=== PATIENT | male | born 1960 | race Caucasian/White ===

== ENCOUNTER 2022-10-13 07:06 | Outpatient (REF) | payer OTHER, SELFPAY ==
[2022-10-13 11:53] LABS: Hematocrit 42.1 % (42.0-52.0); Mean Corpuscular HGB Conc 33.3 g/dl (31.0-36.0); Mean Corpuscular Hemoglobin 32.3 pg (27.0-33.0); Mean Platelet Volume 10.2 fL (9.4-12.4); Platelet Count 208 X10*3/uL (160-400); Red Blood Count 4.34 X10*6/uL (4.60-5.80); Red Cell Distribution Width 12.3 % (11.0-16.0); White Blood Count 6.9 X10*3/uL (4.8-10.8)
[2022-10-13 12:32] LABS: Alanine Aminotransferase 18 U/L (0-40); Albumin Level 4.2 g/dL (3.5-5.0); Alkaline Phosphatase 90 U/L (39-117); Anion Gap 11 (12-20); Aspartate Amino Transferase 22 U/L (5-37); Bilirubin Total 1.2 mg/dL (0.0-1.0); Blood Urea Nitrogen 22 mg/dL (9-16); Carbon Dioxide 28 mmol/L (22-29); Chloride 107 mmol/L (96-108); Cholesterol 198 mg/dL; Estimated Glomerular Filt Rate > 60; Glucose Fasting 108 mg/dL (60-99); HDL Cholesterol 34 mg/dL; LDL Cholesterol Calculated 138 mg/dl; Sodium 142 mmol/L (135-145); Total Protein 6.8 g/dL (6.5-8.0); Triglycerides 134 mg/dL
[2022-10-13 12:53] LABS: TSH reflex Free T4 1.92 uIU/mL (0.32-4.0); Vitamin D 25-OH Total 23.7 ng/mL (>30)
[2022-10-21 01:13] LABS: PSA, Ultra Sensitive 1.85 ng/mL
== END 2022-10-13 07:07 | disposition home or self-care (01) ==
LOC: HO.WFDLDS 07:06
PROVIDERS: Visit Provider Nurse Practitioner Family
DX: Z12.5 Encounter for screening for malignant neoplasm of prostate (principal); I10 Essential (primary) hypertension; E55.9 Vitamin D deficiency, unspecified
CPT/HCPCS: 36415; 80053; 80061; 82306; 84153; 84443; 85027

== ENCOUNTER 2023-03-20 13:01 | Outpatient (AMB) | payer OTHER, SELFPAY ==
[2023-03-20 13:05] VITALS: BP 124/74; PULSE 68; RESP 12; TEMP 36.4; O2SAT 99; BMI 29.2
--- NOTE | 2023-03-20 13:05 | A.OFFPC_ITS ---
Vital Signs 03/20/23 13:05 Height 6 ft 1 in Weight 221 lb 8 oz BMI 29.2 BP 124/74 Blood Pressure Location Lt brachial Position Sitting Respiration 12 Pulse 68 Pulse Source Pulse Oximeter Temp 97.5 F Temp Source Temporal Artery Scan Pulse Oximetry (%) 99 Oxygen Delivery Method Room Air Intake Visit Reasons: 1 mos HTN - due for colonoscopy Intake Note: Patient would like to know what the ideal salt intake should be for the day. Customer Business Manager Required: No Accompanied by: Self / Same As Patient Allergies shellfish derived Allergy (Mild, Verified 03/20/23 13:26) Unknown Medication List - Last Reconciled 03/20/23 by Gaston Wyatt CNP amlodipine 10 mg PO DAILY 30 days cholecalciferol (vitamin D3) 25 mcg PO DAILY 90 days metoprolol tartrate 50 mg PO DAILY 30 days Tobacco use date assessed: 10/17/22 Fall risk assessment: No Falls in past year Last assessed Fall Risk: 03/20/23 Dental Screening Dental Screen Date: 03/20/23 Did you have a dental visit in the last 12 months?: Yes Did you have a dental problem in the last 6 months where you did not have access to dental care?: No Was dental information given to patient?: Patient has dentist HPI HPI Comments History of Present Illness Details 63-year-old male presents for hypertensi on follow-up He notes that he has been taking amlodipine and metoprolol as prescribed His home blood pressures have been normal He states he has been making lifestyle changes such as eliminating salt and caffeine in his diet, running and exercising at the gym No complaints or acute symptoms [facility] Medical History (Updated 03/20/23 @ 13:32 by Gaston Wyatt CNP) No pertinent past medical history Surgical History No pertinent past surgical history Social History Housing: House Patient Tobacco Use Status: Never used Tobacco e-Cigarette/Vaping Use: Never Used Second Hand Smoke Exposure: No service: No Current occupational status: employed 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 Iván Brink, Chandni Winn, Evan Lopez and colleagues, with an educational barb from [employer] Review of Systems Const Details: Const Denies chills, Denies fatigue, Denies fever(s), Denies headache(s) and Denies weakness ENT Denies dizziness and Denies headache(s) Card Denies chest pain, Denies lightheadedness, Denies dyspnea and Denies other (Palpitations) Resp Denies cough, Denies dyspnea, Denies wheezing and Denies other ( shortness of breath) GI Denies abdominal pain, Denies melena, Denies hematochezia, Denies change in bowel habits, Denies dyspepsia and Denies nausea Denies hematuria and Denies dysuria Musc Denies abnormal gait, Denies myalgias, Denies arthralgias, Denies numbness and Denies tingling Skin/Breast Denies rash, Denies unusual bruising and Denies wounds Neuro Denies abnormal gait, Denies dizziness, Denies headache(s), Denies memory loss, Denies numbness, Denies Sensory deficit (Neuro), Denies tingling and Denies weakness Psych Denies anxiety, Denies depression, Denies memory loss Endo Denies cold intolerance, Denies fatigue, Denies heat intolerance, Denies polydipsia and Denies polyuria Aller/Immun Denies wheezing Physical exam (Primary Care) Vital Signs: Last Vital Signs Temp 97.5 F 03/20/23 13:05 Pulse 68 03/20/23 13:05 Resp 12 03/20/23 13:05 BP 124/74 03/20/23 13:05 Pulse Ox 99 03/20/23 13:05 Oxygen Delivery Method Room Air 03/20/23 13:05 BMI result Body Mass Index 29.2 Tobacco/Smoking Status: Tobacco use Status Tobacco use date assessed 10/17/22 03/20/23 13:15 Patient Tobacco Use Status Never used Tobacco 03/20/23 13:15 e-Cigarette/Vaping Use Never Used 03/20/23 13:15 Thrive Assessment: Date of Thrive Assessment Date Thrive assessed 07/26/22 03/20/23 13:15 Const Other: General: no acute distress and well developed Nutritional Appearance: well nourished Orientation/consciousness: patient oriented x3 [facility] Head: Yes normocephalic and Yes atraumatic Eyes General: appearance normal, both eyes and all related structures Pupils: Equal, round and reactive pupils present EOM: EOMs intact bilaterally Resp Effort & Inspection: normal respiratory effort Auscultation: clear to auscultation bilaterally Cardio Rate: regular rate Rhythm: regular rhythm Heart sounds: S1 normal heart sound present, S2 normal heart sound present, no gallops, no murmurs and no rubs GI Palpation (GI): No Abdominal aortic bruit present, Soft to palpation, nontender, No hepatosplenomegaly present and No Rebound tenderness present Auscultation: normal bowel sounds General: Yes no CVA tenderness Back/Spine/Pelvis Back: no CVA tenderness Cervical Spine: cervical ROM normal and No Cervical spine tenderness Thoracic/Lumbar Spine: thoraco-lumbar ROM normal, No pain with thoraco-lumbar ROM, No thoracic spinal tenderness and No lumbar spinal tenderness Extrem General: Yes normal to inspection, No edema and No calf tenderness Skin General: warm and dry. Normal skin color. Normal skin turgor Lesions: no lesions Rashes: no rashes Trauma: no lacerations or abrasions Wounds: no wounds Nails: normal Neuro General: patient oriented x3, gait normal and no focal neuro deficit Cranial nerves: Yes Equal, round and reactive pupils present Cognition (Neuro): normal cognition Gait exam (Neuro): Normal gait present Sensory Exam: No Sensory deficit (Neuro) Psych Appearance: grossly normal Affect: normal affect Attitude: cooperative Thought process: Normal thought process present Assessment and Plan Assessment & Plan (1) Essential hypertension: Code(s): I10 - Essential (primary) hypertension Plan: Blood pressure is 124/74, within goal of less than 140/90 Continue with current treatment regimen Low-sodium diet encouraged. Advised to limit sodium intake to 4298-7167 mg daily Follow-up in 1 month for physical Return with symptoms or concerns Verbalized understanding and agreed with treatment plan. (2) Elevated fasting glucose: Code(s): R73.01 - Impaired fasting glucose Plan: He had blood work done in September. Fasting glucose was slightly elevated, 108 Wall repeat fasting blood glucose. Advised to fast for at least 10-12 hours and get blood work done before next visit Follow-up in 1 month for complete physical exam Verbalized understanding and agreed with the treatment plan. Orders: Orders Glucose Fasting Today R73.01 - Impaired fasting glucose Coding Level of Care Code Est Pt Level 3 (88075) Diagnoses Essential hypertension I10 Elevated fasting glucose R73.01
== END 2023-03-20 13:37 | disposition home or self-care (01) ==
PROVIDERS: PCP Nurse Practitioner Family; Visit Provider Nurse Practitioner Family
DX: I10 Essential (primary) hypertension (principal); R73.01 Impaired fasting glucose
CPT/HCPCS: 99213

== ENCOUNTER 2023-07-30 07:40 | Outpatient (REF) | payer OTHER, SELFPAY ==
[2023-07-30 12:30] LABS: Glucose Fasting 105 mg/dL (60-99)
[2023-07-30 12:53] LABS: Vitamin D 25-OH Total 22.1 ng/mL (>30)
== END 2023-07-30 07:41 | disposition home or self-care (01) ==
LOC: HO.WFDLDS 07:40
PROVIDERS: Visit Provider Nurse Practitioner Family
DX: R73.01 Impaired fasting glucose (principal); E55.9 Vitamin D deficiency, unspecified
CPT/HCPCS: 36415; 82306; 82947

== ENCOUNTER 2023-07-30 15:26 | Outpatient (AMB) | payer OTHER, SELFPAY ==
[2023-07-30 15:32] VITALS: BP 160/84; PULSE 64; RESP 13; TEMP 36.5; O2SAT 99; BMI 29.7
--- NOTE | 2023-07-30 15:32 | A.OFFPC_ITS ---
Vital Signs 07/30/23 15:32 07/30/23 16:04 Height 6 ft 1 in Weight 225 lb BMI 29.7 BP 160/84 H 136/80 Blood Pressure Location Rt brachial Rt brachial Position Sitting Sitting Respiration 13 Pulse 64 Pulse Source Pulse Oximeter Temp 97.7 F Temp Source Temporal Artery Scan Pulse Oximetry (%) 99 Oxygen Delivery Method Room Air Intake Visit Reasons: CPE Customer Service Consultant Required: No Accompanied by: Self / Same As Patient Allergies shellfish derived Allergy (Mild, Verified 07/30/23 16:02) Unknown Medication List - Last Reconciled 07/30/23 by Gaston Wyatt CNP amlodipine 10 mg PO DAILY 30 days cholecalciferol (vitamin D3) 25 mcg PO DAILY 90 days metoprolol tartrate 50 mg PO DAILY 30 days Tobacco use date assessed: 07/30/23 Fall risk assessment: No Falls in past year Last assessed Fall Risk: 07/30/23 Dental Screening Dental Screen Date: 07/30/23 Did you have a dental visit in the last 12 months?: Yes Did you have a dental problem in the last 6 months where you did not have access to dental care?: No Was dental information given to patient?: Patient has dentist HPI HPI Comments History of Present Illness Details 63-year-old male presents for an extende d physical exam He admits to taking his medications as prescribed without adverse reactions He offers no complaints and denies acute symptoms at this time He states that he has been exercising routinely and making healthy dietary choices He notes that his last colonoscopy was 10 years ago: normal He has not been vaccinated for PNA or the current flu. 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 1. Little interest or pleasure in doing things: not at all 2. Feeling down, depressed, or hopeless: not at all 3. Trouble falling or staying asleep, or sleeping too much: more than half the days 4. Feeling tired or having little energy: several days 5. Poor appetite or overeating: not at all 6. Feeling bad about yourself - or that you are a failure or have let yourself or your family down: not at all 7. Trouble concentrating on things, such as reading the newspaper or watching television: not at all 8. Moving or speaking so slowly that other people could have noticed. Or the opposite - being so fidgety or restless that you have been moving around a lot more than usual: not at all 9. Thoughts that you would be better off or of hurting yourself in some way: not at all Total score: 3 Depression Screening Interpretation: Negative Depression Screening Done: Yes 97747 - PHQ-9 Billing: Yes Source: Developed by Drs. Iván Brink, Chandni Winn, Evan Lopez and colleagues, with an educational barb from [employer]. Thrive Questionnaire Date Thrive assessed: 07/30/23 I am a: Patient What is your living situation today?: I have a steady place to live Within the past 12 months, did the food you bought not last and you didn't have the money to get more?: Never true Within the past 12 months, did you worry whether your food would run out before you got money to buy more?: Never true Do you have trouble paying for medicines?: No Do you have trouble getting transportation to medical appointments?: No Do you have trouble paying your heating and electricity bill?: No Do you have trouble taking care of your child, family member or friend?: No Do you have trouble with day-to-day activities such as bathing, preparing meals, shopping, managing finances, etc.?: No Are you currently unemployed and looking for a job?: No Are you interested in more education?: No Please select the resources that you would like help with: None Currently or been in a relationship where the following occur: no concerns reported THRIVE Score: 0 AUDIT C Alcohol Use Questionnaire (AUDIT-C) 1. How often do you have a drink containing alcohol?: Monthly or less 2. How many drinks containing alcohol do you have on a typical day when you are drinking?: 1 or 2 3. How often do you have six or more drinks on one occasion?: Never Total Score: 1 DIALLO-7 AMB Questionnaire DIALLO-7 Date DIALLO - 7 assessed: 07/30/23 Feeling nervous, anxious, or on edge: 1 = Several days Not being able to stop or control worryin = Several days Worrying too much about different things: 1 = Several days Trouble relaxin = Not at all Being so restless that it is hard to sit still: 3 = Nearly every day Becoming easily annoyed or irritable: 0 = Not at all Feeling afraid as if something awful might happen: 0 = Not at all Total DIALLO-7 score (0-4 normal; 5-9 mild; 10-14 moderate; 15-21 severe): 6 Source: Developed by Drs. Iván Brink, Chandni Winn, Evan Lopez and colleagues, with an educational barb from [employer]. DIALLO-7 Assessment Billing DIALLO-7 Assessment Tool: DIALLO-7 Assessment 68779 Physical exam (Primary Care) Vital Signs: Last Vital Signs Temp 97.7 F 07/30/23 15:32 Pulse 64 07/30/23 15:32 Resp 13 07/30/23 15:32 BP 160/84 H 07/30/23 15:32 Pulse Ox 99 07/30/23 15:32 Oxygen Delivery Method Room Air 07/30/23 15:32 BMI result Body Mass Index 29.7 Tobacco/Smoking Status: Tobacco use Status Tobacco use date assessed 07/30/23 07/30/23 15:43 Patient Tobacco Use Status Never used Tobacco 07/30/23 15:32 e-Cigarette/Vaping Use Never Used 07/30/23 15:32 PHQ-9: PHQ-9 Score PHQ-9: Total score 3 07/30/23 15:46 Depression Screening Interpretation: Negative Thrive Assessment: Date of Thrive Assessment Date Thrive assessed 07/30/23 07/30/23 15:43 Currently or been in a relationship where the following occur: no concerns reported Assessment and Plan Assessment & Plan (1) Normal physical examination, routine: Code(s): Z00.00 - Encounter for general adult medical examination without abnormal findings Plan: No significant physical restrictions or limitations noted Continue current treatment regimen Advised to get fasting blood work done before his next visit Follow-up in 2 months for hypertension, vitamin-D deficiency, and labs review Return sooner with symptoms or concerns Verbalized understanding and agreed with treatment plan (2) Essential hypertension: Code(s): I10 - Essential (primary) hypertension Plan: Resting blood pressure is 136/80, within goal of less than 140/90 Continue current treatment regimen Low-sodium diet and routine exercise encouraged Follow-up in 2 months Verbalized understanding and agreed with treatment plan (3) Vitamin D deficiency: Code(s): E55.9 - Vitamin D deficiency, unspecified Plan: Recent vitamin-D level is low, 22.1 Will increase vitamin D3 to 2000 units daily. Take as prescribed Will recheck vitamin-D level in 2 months and make changes as needed Verbalized understanding and agreed with the plan (4) Elevated fasting glucose: Code(s): R73.01 - Impaired fasting glucose Plan: History of elevated fasting glucose. Recent fasting glucose is 105 A1c today is 5.5%, normal Healthy diet and routine exercise encouraged Verbalized understanding and agreed with the plan (5) Colon cancer screening: Code(s): Z12.11 - Encounter for screening for malignant neoplasm of colon Plan: He notes that his last colonoscopy was 10 years ago: normal Referred to [facility] for a colonoscopy (6) Vaccine counseling: Code(s): Z71.85 - Encounter for immunization safety counseling Plan: He has not been vaccinated for PNA or the current flu He declines the flu vaccine Instructed on the importance of vaccination and encouraged to get vaccinated for pneumonia and influenza Verbalized understanding and notes that he will get vaccinated for pneumonia Orders: Orders AMB Hemoglobin A1c Today Z13.9 - Encounter for screening, unspecified Comprehensive [place]. Panel Fast Today Z00.00 - Encounter for general adult medical examination without abnormal findings Lipid Panel Today Z00.00 - Encounter for general adult medical examination without abnormal findings PSA, Ultra Sensitive Today Z00.00 - Encounter for general adult medical examination without abnormal findings Complete Blood Count Auto Diff Today Z00.00 - Encounter for general adult medical examination without abnormal findings TSH reflex Free T4 Today Z00.00 - Encounter for general adult medical examination without abnormal findings UA CC w/rflx Micro + Cult Today Z00.00 - Encounter for general adult medical examination without abnormal findings Vitamin D 25-OH Total Today E55.9 - Vitamin D deficiency, unspecified Referrals Gastroenterology Referral Z12.11 - Encounter for screening for malignant neoplasm of colon Medications: New cholecalciferol (vitamin D3) 50 mcg PO DAILY 90 tabs 3RF 90 days Discontinued cholecalciferol (vitamin D3) Discontinued Reason: Doctor's Order 25 mcg PO DAILY 90 tabs 1RF 90 days Coding Level of Care Code Est Pt Prev Care >65y(49536) Diagnoses Normal physical examination, routine Z00.00 Essential hypertension I10 Vitamin D deficiency E55.9 Elevated fasting glucose R73.01 Colon cancer screening Z12.11 Vaccine counseling Z71.85 Additional Codes DIALLO-7 Assessment Billing - DIALLO-7 Assessment Tool: DIALLO-7 Assessment [id number] ([id number])
[2023-07-30 16:04] VITALS: BP 136/80
== END 2023-07-30 16:31 | disposition home or self-care (01) ==
PROVIDERS: PCP Nurse Practitioner Family; Visit Provider Nurse Practitioner Family
DX: Z00.00 Encounter for general adult medical examination without abnormal findings (principal); I10 Essential (primary) hypertension; E55.9 Vitamin D deficiency, unspecified; R73.01 Impaired fasting glucose; Z12.11 Encounter for screening for malignant neoplasm of colon; Z71.85 Encounter for immunization safety counseling
CPT/HCPCS: 99397

== ENCOUNTER 2023-11-08 07:26 | Outpatient (REF) | payer OTHER, SELFPAY ==
[2023-11-08 11:26] LABS: MANUAL DIFF FLAG NO
[2023-11-08 11:37] LABS: Basophils Percent Auto 0.4 % (0-2); Eosinophils Absolute Auto 0.3 X10*3/uL (0.0-0.4); Eosinophils Percent Auto 4.2 % (0-4); Hematocrit 39.7 % (42.0-52.0); Hemoglobin 13.5 g/dl (14.0-18.0); Imm Gran Abs Auto 0.02 X10*3/uL (0.00-0.03); Imm Gran Pct Auto 0.3 % (0.0-0.4); Lymphocytes Percent Auto 29.6 % (20-40); Mean Corpuscular Hemoglobin 32.5 pg (27.0-33.0); Mean Corpuscular Volume 95.7 fL (80.0-98.0); Mean Platelet Volume 9.9 fL (9.4-12.4); Monocytes Absolute Auto 0.6 X10*3/uL (0.1-1.2); Monocytes Percent Auto 8.5 % (2-11); Neutrophils Absolute Auto 3.8 x10*3/uL (2.0-8.3); Platelet Count 234 X10*3/uL (160-400); Red Blood Count 4.15 X10*6/uL (4.60-5.80); Red Cell Distribution Width 12.4 % (11.0-16.0); White Blood Count 6.7 X10*3/uL (4.8-10.8)
[2023-11-08 12:50] LABS: Alanine Aminotransferase 18 U/L (0-40); Alkaline Phosphatase 85 U/L (39-117); Anion Gap 11 (12-20); Aspartate Amino Transferase 21 U/L (5-37); Bilirubin Total 0.6 mg/dL (0.0-1.0); Blood Urea Nitrogen 19 mg/dL (9-16); Calcium 9.2 mg/dL (8.4-10.2); Carbon Dioxide 27 mmol/L (22-29); Chloride 106 mmol/L (96-108); Cholesterol 180 mg/dL (<200); Estimated Glomerular Filt Rate > 60; Glucose Fasting 95 mg/dL (60-99); HDL Cholesterol 37 mg/dL (>40); LDL Cholesterol Calculated 114 mg/dL (<100); Potassium 3.4 mmol/L (3.3-5.1); Sodium 141 mmol/L (135-145); TSH reflex Free T4 2.57 uIU/mL (0.32-4.0); Total Protein 6.9 g/dL (6.5-8.0); Triglycerides 146 mg/dL (<150)
[2023-11-21 00:29] LABS: PSA, Ultra Sensitive 1.44 ng/mL
== END 2023-11-08 07:27 | disposition home or self-care (01) ==
LOC: HO.WFDLDS 07:26
PROVIDERS: Visit Provider Nurse Practitioner Family
DX: Z00.00 Encounter for general adult medical examination without abnormal findings (principal); Z12.5 Encounter for screening for malignant neoplasm of prostate; E55.9 Vitamin D deficiency, unspecified
CPT/HCPCS: 36415; 80053; 80061; 82306; 84153; 84443; 85025

== ENCOUNTER → 2023-11-09 16:43 | Outpatient (AMB) | payer OTHER, SELFPAY ==
[2023-11-09 16:43] VITALS: BP 160/90; PULSE 78; RESP 14; TEMP 36.5; O2SAT 99; BMI 30.3
--- NOTE | 2023-11-09 16:43 | A.OFFPC_ITS ---
Vital Signs 11/09/23 16:43 11/09/23 17:01 Height 6 ft 1 in Weight 229 lb 8 oz BMI 30.3 BP 160/90 H 140/90 H Blood Pressure Location Rt brachial Lt brachial Position Sitting Sitting Respiration 14 Pulse 78 64 Pulse Source Pulse Oximeter Auscultation Temp 97.7 F Temp Source Temporal Artery Scan Pulse Oximetry (%) 99 Oxygen Delivery Method Room Air Intake Visit Reasons: HTN, VIT D Deficiency, labs review Product Development Consultant Required: No Accompanied by: Self / Same As Patient Allergies Seasonal Allergies Allergy (Intermediate, Verified 11/09/23 16:52) Sneezing shellfish derived Allergy (Mild, Verified 11/09/23 16:52) Unknown Medication List - Last Reconciled 11/09/23 by Gaston Wyatt CNP amlodipine 10 mg PO DAILY 30 days cholecalciferol (vitamin D3) 50 mcg PO DAILY 90 days metoprolol tartrate 50 mg PO DAILY 30 days Tobacco use date assessed: 07/30/23 Fall risk assessment: No Falls in past year Last assessed Fall Risk: 11/09/23 Dental Screening Dental Screen Date: 07/30/23 HPI HPI Comments History of Present Illness Details 63-year-old male presents for hypertensi on, vitamin-D deficiency, and recent lab work review He admits to taking his medications as prescribed without adverse reactions He notes that he has not be sleeping well in the past 1 week due to the family dog been unwell He states that his daughter occasionally checks his blood pressure. His last home systolic blood pressure was 130 He admits to making healthy dietary choices and exercising. He denies heavy salt or caffeine consumption He offers no complaints and denies acute symptoms at this time He had to cancel his GI appointment for colonoscopy prep to assist his . He called and left a message with the GI office to reschedule [facility] Medical History No pertinent past medical history Surgical History No pertinent past surgical history Social History Housing: House Patient Tobacco Use Status: Never used Tobacco e-Cigarette/Vaping Use: Never Used Second Hand Smoke Exposure: No service: No Current occupational status: employed Current occupation: [employer] Current occupational exposures/hazards: No Cognitive needs: No Hearing needs: No Vision needs: Yes Questionnaire Thrive Questionnaire Date Thrive assessed: 07/30/23 DIALLO-7 AMB Questionnaire DIALLO-7 Date DIALLO - 7 assessed: 07/30/23 Source: Developed by Drs. Iván Brink, Chandni Winn, Evan Lopez and colleagues, with an educational barb from [employer]. Review of Systems Const Details: Const Denies chills, Denies fatigue, Denies fever(s), Denies headache(s) and Denies weakness ENT Denies dizziness and Denies headache(s) Card Denies chest pain, Denies lightheadedness, Denies dyspnea and Denies other (Palpitations) Resp Denies cough, Denies dyspnea, Denies wheezing and Denies other ( shortness of breath) GI Denies abdominal pain, Denies melena, Denies hematochezia, Denies change in bowel habits, Denies dyspepsia and Denies nausea Denies hematuria and Denies dysuria Musc Denies abnormal gait, Denies myalgias, Denies arthralgias, Denies numbness and Denies tingling Skin/Breast Denies rash, Denies unusual bruising and Denies wounds Neuro Denies abnormal gait, Denies dizziness, Denies headache(s), Denies memory loss, Denies numbness, Denies Sensory deficit (Neuro), Denies tingling and Denies weakness Psych Denies anxiety, Denies depression, Denies memory loss Endo Denies cold intolerance, Denies fatigue, Denies heat intolerance, Denies polydipsia and Denies polyuria Aller/Immun Denies wheezing Physical exam (Primary Care) Vital Signs: Last Vital Signs Temp 97.7 F 11/09/23 16:43 Pulse 78 11/09/23 16:43 Resp 14 11/09/23 16:43 BP 160/90 H 11/09/23 16:43 Pulse Ox 99 11/09/23 16:43 Oxygen Delivery Method Room Air 11/09/23 16:43 BMI result Body Mass Index 30.3 Tobacco/Smoking Status: Tobacco use Status Tobacco use date assessed 07/30/23 11/09/23 16:49 Patient Tobacco Use Status Never used Tobacco 11/09/23 16:49 e-Cigarette/Vaping Use Never Used 11/09/23 16:49 Thrive Assessment: Date of Thrive Assessment Date Thrive assessed 07/30/23 11/09/23 16:49 Const Other: General: no acute distress and well developed Nutritional Appearance: well nourished Orientation/consciousness: patient oriented x3 [facility] Head: Yes normocephalic and Yes atraumatic Eyes General: appearance normal, both eyes and all related structures Pupils: Equal, round and reactive pupils present EOM: EOMs intact bilaterally Resp Effort & Inspection: normal respiratory effort Auscultation: clear to auscultation bilaterally Cardio Rate: regular rate Rhythm: regular rhythm Heart sounds: S1 normal heart sound present, S2 normal heart sound present, no gallops, no murmurs and no rubs GI Palpation (GI): No Abdominal aortic bruit present, Soft to palpation, nontender, No hepatosplenomegaly present and No Rebound tenderness present Auscultation: normal bowel sounds General: Yes no CVA tenderness Back/Spine/Pelvis Back: no CVA tenderness Cervical Spine: cervical ROM normal and No Cervical spine tenderness Thoracic/Lumbar Spine: thoraco-lumbar ROM normal, No pain with thoraco-lumbar ROM, No thoracic spinal tenderness and No lumbar spinal tenderness Extrem General: Yes normal to inspection, No edema and No calf tenderness Skin General: warm and dry. Normal skin color. Normal skin turgor Neuro General: patient oriented x3, gait normal and no focal neuro deficit Cranial nerves: Yes Equal, round and reactive pupils present Cognition (Neuro): normal cognition Gait exam (Neuro): Normal gait present Sensory Exam: No Sensory deficit (Neuro) Psych Appearance: grossly normal Affect: normal affect Attitude: cooperative Thought process: Normal thought process present Assessment and Plan Assessment & Plan (1) Essential hypertension: Code(s): I10 - Essential (primary) hypertension Plan: Resting blood pressure is 140/90, slightly above goal of less than 140/90. Heart rate is 64 Continue current treatment regimen Low-sodium diet, low caffeine intake, and routine exercise encouraged Advised to monitor blood pressure 2 to 3 times weekly, record readings, and bring to next appointment Follow-up in 1 month or return sooner with symptoms or concerns Verbalized understanding and agreed with treatment plan (2) Vitamin D deficiency: Code(s): E55.9 - Vitamin D deficiency, unspecified Plan: Recent vitamin-D level was normal, 38.0 Continue to take vitamin D3 as prescribed Verbalized understanding and agreed with the plan (3) Low HDL (under 40): Code(s): E78.6 - Lipoprotein deficiency Plan: Recent lab results are unremarkable except for slightly low HDL, 37. PSA is pending result Advised to limit foods high in saturated fat and avoid foods high in trans fat Routine exercise encouraged Verbalized understanding and agreed with the plan Coding Level of Care Code Est Pt Level 4 (79993) Complex EM visit Add On G2211 Diagnoses Essential hypertension I10 Vitamin D deficiency E55.9 Low HDL (under 40) E78.6
[2023-11-09 17:01] VITALS: BP 140/90; PULSE 64
== END ==
PROVIDERS: PCP Nurse Practitioner Family; Visit Provider Nurse Practitioner Family
DX: I10 Essential (primary) hypertension (principal); E55.9 Vitamin D deficiency, unspecified; E78.6 Lipoprotein deficiency
CPT/HCPCS: 99214; G2211

== ENCOUNTER 2025-04-07 10:51 | Outpatient (AMB) | payer OTHER, SELFPAY ==
--- NOTE | 2025-04-07 10:56 | MHC.PC.OV ---
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: No Allergies Seasonal Allergies Allergy (Intermediate, Verified 04/07/25 11:19) Sneezing shellfish derived Allergy (Mild, Verified 04/07/25 11:19) Unknown Medication List - Last Reconciled 04/07/25 by Gaston Wyatt CNP amlodipine 10 mg PO DAILY cholecalciferol (vitamin D3) 50 mcg PO DAILY 90 days metoprolol tartrate 50 mg PO DAILY Tobacco use date assessed: 04/07/25 Fall risk assessment: No Falls in past year Last assessed Fall Risk: 04/07/25 Dental Screening Dental Screen Date: 04/07/25 Did you have a dental visit in the last 12 months?: Yes Did you have a dental problem in the last 6 months where you did not have access to dental care?: No Was dental information given to patient?: Patient has dentist HPI HPI Comments History of Present Illness Details 65-year-old male presents for hypertension follow-up. He admits to taking his medications as prescribed without adverse reactions. However, he ran out of amlodipine and metoprolol 2 weeks ago. He had not seen his PCP in almost a year and a half and was required to come in to the office to be evaluated before medication refills. He has been making healthy lifestyle changes. 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 1. Little interest or pleasure in doing things: not at all 2. Feeling down, depressed, or hopeless: not at all 3. Trouble falling or staying asleep, or sleeping too much: several days 4. Feeling tired or having little energy: not at all 5. Poor appetite or overeating: not at all 6. Feeling bad about yourself - or that you are a failure or have let yourself or your family down: not at all 7. Trouble concentrating on things, such as reading the newspaper or watching television: not at all 8. Moving or speaking so slowly that other people could have noticed. Or the opposite - being so fidgety or restless that you have been moving around a lot more than usual: not at all 9. Thoughts that you would be better off or of hurting yourself in some way: not at all Total score: 1 Depression Screening Interpretation: Negative Depression Screening Done: Yes Source: Developed by Drs. Iván Brink, Chandni Winn, Evan Lopez and colleagues, with an educational barb from [employer]. Thrive Questionnaire Date Thrive assessed: 07/30/23 I am a: Patient What is your living situation today?: I have a steady place to live Within the past 12 months, did the food you bought not last and you didn't have the money to get more?: Never true Within the past 12 months, did you worry whether your food would run out before you got money to buy more?: Never true Do you have trouble paying for medicines?: No Do you have trouble getting transportation to medical appointments?: No Do you have trouble paying your heating and electricity bill?: No Do you have trouble taking care of your child, family member or friend?: No Do you have trouble with day-to-day activities such as bathing, preparing meals, shopping, managing finances, etc.?: No Are you currently unemployed and looking for a job?: No Are you interested in more education?: No Please select the resources that you would like help with: None Currently or been in a relationship where the following occur: No concerns reported THRIVE Score: 0 AUDIT C Alcohol Use Questionnaire (AUDIT-C) 1. How often do you have a drink containing alcohol?: Never Total Score: 0 Score Reviewed/Action Taken: Yes DIALLO-7 AMB Questionnaire DIALLO-7 Date DIALLO - 7 assessed: 07/30/23 Feeling nervous, anxious, or on edge: 0 = Not at all Not being able to stop or control worryin = Not at all Worrying too much about different things: 0 = Not at all Trouble relaxin = Not at all Being so restless that it is hard to sit still: 0 = Not at all Becoming easily annoyed or irritable: 0 = Not at all Feeling afraid as if something awful might happen: 0 = Not at all Total DIALLO-7 score (0-4 normal; 5-9 mild; 10-14 moderate; 15-21 severe): 0 Source: Developed by Drs. Iván Brink, Chandni Winn, Evan Lopez and colleagues, with an educational barb from [employer]. Review of Systems Const Details: Const Denies chills, Denies fatigue, Denies fever(s), Denies headache(s) and Denies weakness ENT Denies dizziness and Denies headache(s) Card Denies chest pain, Denies lightheadedness, Denies dyspnea and Denies other (Palpitations) Resp Denies cough, Denies dyspnea, Denies wheezing and Denies other ( shortness of breath) GI Denies abdominal pain, Denies melena, Denies hematochezia, Denies change in bowel habits, Denies dyspepsia and Denies nausea Denies hematuria and Denies dysuria Musc Denies abnormal gait, Denies myalgias, Denies arthralgias, Denies numbness and Denies tingling Skin/Breast Denies rash, Denies unusual bruising and Denies wounds Neuro Denies abnormal gait, Denies dizziness, Denies headache(s), Denies memory loss, Denies numbness, Denies Sensory deficit (Neuro), Denies tingling and Denies weakness Psych Denies anxiety, Denies depression, Denies memory loss Endo Denies cold intolerance, Denies fatigue, Denies heat intolerance, Denies polydipsia and Denies polyuria Aller/Immun Denies wheezing Physical exam (Primary Care) Vital Signs: Last Vital Signs Temp 97.6 F 04/07/25 11:05 Pulse 93 04/07/25 11:05 Resp 16 04/07/25 11:05 BP 168/95 H 04/07/25 11:05 Pulse Ox 98 04/07/25 11:05 Oxygen Delivery Method Room Air 04/07/25 11:05 BMI result Body Mass Index 28.6 Tobacco/Smoking Status: Tobacco use Status Tobacco use date assessed 04/07/25 04/07/25 11:09 Patient Tobacco Use Status Never used Tobacco 04/07/25 10:58 e-Cigarette/Vaping Use Never Used 04/07/25 10:58 PHQ-9: PHQ-9 Score PHQ-9: Total score 1 04/07/25 10:58 Depression Screening Interpretation: Negative Thrive Assessment: Date of Thrive Assessment Date Thrive assessed 07/30/23 04/07/25 10:58 Currently or been in a relationship where the following occur: No concerns reported Const Other: General: no acute distress and well developed Nutritional Appearance: well nourished Orientation/consciousness: patient oriented x3 HENMT Head: Yes normocephalic and Yes atraumatic Eyes General: appearance normal, both eyes and all related structures Pupils: Equal, round and reactive pupils present EOM: EOMs intact bilaterally Resp Effort & Inspection: normal respiratory effort Auscultation: clear to auscultation bilaterally Cardio Rate: regular rate Rhythm: regular rhythm Heart sounds: S1 normal heart sound present, S2 normal heart sound present, no gallops, no murmurs and no rubs GI Palpation (GI): No Abdominal aortic bruit present, Soft to palpation, nontender, No hepatosplenomegaly present and No Rebound tenderness present Auscultation: normal bowel sounds General: Yes no CVA tenderness Back/Spine/Pelvis Back: no CVA tenderness Cervical Spine: cervical ROM normal and No Cervical spine tenderness Thoracic/Lumbar Spine: thoraco-lumbar ROM normal, No pain with thoraco-lumbar ROM, No thoracic spinal tenderness and No lumbar spinal tenderness Extrem General: Yes normal to inspection, No edema and No calf tenderness Skin General: warm and dry. Normal skin color. Normal skin turgor Neuro General: patient oriented x3, gait normal and no focal neuro deficit Cranial nerves: Yes Equal, round and reactive pupils present Cognition (Neuro): normal cognition Gait exam (Neuro): Normal gait present Sensory Exam: No Sensory deficit (Neuro) Psych Appearance: grossly normal Affect: normal affect Attitude: cooperative Thought process: Normal thought process present Coding Level of Care Code Est Pt Level 3 (86333) Diagnoses Essential hypertension I10 Laboratory tests ordered as part of a complete physical exam (CPE) Z00.00 Assessment & Plan Assessment & Plan (1) Essential hypertension: Code(s): I10 - Essential (primary) hypertension Category: Medical Plan: Resting blood pressure is 140/90, slightly above goal of less than 140/90. Amlodipine and metoprolol refilled; advised to take as prescribed. Low-sodium diet encouraged. Follow-up in a month for an extended physical exam and labs review. Return sooner with symptoms or concerns. Verbalized understanding and agreed with the plan. (2) Laboratory tests ordered as part of a complete physical exam (CPE): Code(s): Z00.00 - Encounter for general adult medical examination without abnormal findings Category: Medical Plan: Fasting labs ordered as part of a complete physical exam. Advised to fast for at least 10 hours before getting labs drawn. May drink water Verbalized understanding and agreed with treatment plan. Orders: Orders Complete Blood Count Auto Diff Today Z00.00 - Encounter for general adult medical examination without abnormal findings Comprehensive [place]. Panel Fast Today Z00.00 - Encounter for general adult medical examination without abnormal findings Lipid Panel Today Z00.00 - Encounter for general adult medical examination without abnormal findings Microalbumin, Random (w Creat) Today Z00.00 - Encounter for general adult medical examination without abnormal findings PSA, Ultra Sensitive Today Z00.00 - Encounter for general adult medical examination without abnormal findings TSH reflex Free T4 Today Z00.00 - Encounter for general adult medical examination without abnormal findings UA CC w/rflx Micro + Cult Today Z00.00 - Encounter for general adult medical examination without abnormal findings Vitamin D 25-OH Total Today Z00.00 - Encounter for general adult medical examination without abnormal findings Medications: Refilled metoprolol tartrate 50 mg PO DAILY 30 tabs 1RF amlodipine 10 mg PO DAILY 30 tabs 1RF
[2025-04-07 11:05] VITALS: BP 168/95; PULSE 93; RESP 16; TEMP 36.4; O2SAT 98; BMI 28.6
[2025-04-07 11:23] VITALS: BP 140/90; PULSE 76
== END 2025-04-07 11:29 | disposition home or self-care (01) ==
LOC: HO.HMCFM 10:52
PROVIDERS: PCP Nurse Practitioner Family; Visit Provider Nurse Practitioner Family
DX: I10 Essential (primary) hypertension (principal); Z00.00 Encounter for general adult medical examination without abnormal findings

== ENCOUNTER 2025-05-11 07:30 | Outpatient (REF) | payer OTHER, SELFPAY ==
[2025-05-11 11:21] LABS: MANUAL DIFF FLAG NO
[2025-05-11 12:11] LABS: Hematocrit 43.1 % (42.0-52.0); Hemoglobin 14.1 g/dl (14.0-18.0); Imm Gran Abs Auto 0.02 X10*3/uL (0.00-0.03); Imm Gran Pct Auto 0.3 % (0.0-0.4); Lymphocytes Absolute Auto 2.1 X10*3/uL (1.2-4.9); Mean Corpuscular HGB Conc 32.7 g/dl (31.0-36.0); Mean Corpuscular Hemoglobin 32.0 pg (27.0-33.0); Mean Corpuscular Volume 97.7 fL (80.0-98.0); NRBC Abs Auto 0.000 X10*3/uL (0.0-0.012); NRBC Pct Auto 0.0 /100WBC (0.0-0.2); Platelet Count 257 X10*3/uL (160-400); Red Blood Count 4.41 X10*6/uL (4.60-5.80); White Blood Count 7.6 X10*3/uL (4.8-10.8)
[2025-05-11 12:38] LABS: Alanine Aminotransferase 18 U/L (0-40); Albumin Level 4.4 g/dL (3.5-5.0); Alkaline Phosphatase 95 U/L (39-117); Anion Gap 11 (12-20); Aspartate Amino Transferase 28 U/L (5-37); Blood Urea Nitrogen 25 mg/dL (9-16); Calcium 8.9 mg/dL (8.4-10.2); Carbon Dioxide 28 mmol/L (22-29); Chloride 105 mmol/L (96-108); Cholesterol 193 mg/dL (<200); Estimated Glomerular Filt Rate > 60; HDL Cholesterol 37 mg/dL (>40); Potassium 3.4 mmol/L (3.3-5.1); Sodium 141 mmol/L (135-145); Total Protein 7.1 g/dL (6.5-8.0); Triglycerides 198 mg/dL (<150)
[2025-05-14 23:08] LABS: PSA, Ultra Sensitive 1.15 ng/mL
== END 2025-05-11 07:31 | disposition home or self-care (01) ==
LOC: HO.WFDLDS 07:30
PROVIDERS: Visit Provider Nurse Practitioner Family
DX: Z00.00 Encounter for general adult medical examination without abnormal findings (principal); Z13.6 Encounter for screening for cardiovascular disorders; Z13.29 Encounter for screening for other suspected endocrine disorder; Z12.5 Encounter for screening for malignant neoplasm of prostate
CPT/HCPCS: 36415; 80053; 80061; 82306; 84153; 84443; 85025

== ENCOUNTER 2025-05-15 07:48 | Outpatient (AMB) | payer OTHER, SELFPAY ==
--- NOTE | 2025-05-15 07:50 | A.OFFPC_ITS ---
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 Required: No Allergies Seasonal Allergies Allergy (Intermediate, Verified 05/15/25 08:08) Sneezing shellfish derived Allergy (Mild, Verified 05/15/25 08:08) Unknown Medication List - Last Reconciled 05/15/25 by Gaston Wyatt CNP amlodipine 10 mg PO DAILY cholecalciferol (vitamin D3) 50 mcg PO DAILY 90 days metoprolol tartrate 50 mg PO DAILY Tobacco use date assessed: 05/15/25 Fall risk assessment: No Falls in past year Last assessed Fall Risk: 05/15/25 Dental Screening Dental Screen Date: 05/15/25 Did you have a dental visit in the last 12 months?: Yes Did you have a dental problem in the last 6 months where you did not have access to dental care?: No Was dental information given to patient?: Patient has dentist HPI HPI Comments History of Present Illness Details 65-year-old male presents for an extende d physical exam and review of recent lab results. He admits to taking his medications as prescribed without adverse reactions. Acute issue(s) - Reports nasal congestion and yellow di scharged for the past 1.5 week. No pain, difficulty breathing, fever, chills, body aches, fatigue, weakness. He recovered from a cold 3 weeks ago Past Medical History - Hypertension, vitamin-D deficiency, lo w HDL, elevated fasting glucose Social History - Nonsmoker. Does not vape. Does not dri nk alcohol. Denies recreational drug use - Has been making healthy dietary choice s. Exercises routinely. Generally sleep well Health maintenance - Last eye exam was 2 years ago with [facility]. He plans to follow up with them next month - Last dental visit was in 07/2024 - Last tetanus vaccine was Tdap 3 years ago with [facility] - Vaccinated for PNA - Has not been vaccinated for shingles. Encouraged to get vaccinated for shingles at the local pharmacy - Has not been vaccinated for the flu ; declines vaccination - Last colonoscopy was over 10 years ago : Normal. Declines colonoscopy. Cologuard ordered Specialists - None [facility] Medical History No pertinent past medical history Surgical History No pertinent past surgical history Social History Housing: House Patient Tobacco Use Status: Never used Tobacco e-Cigarette/Vaping Use: Never Used Second Hand Smoke Exposure: No service: No Current occupational status: employed Current occupation: [employer] Current occupational exposures/hazards: No Cognitive needs: No Hearing needs: No Vision needs: Yes Questionnaire PHQ-9 Over the last 2 weeks, how often have you been bothered by any of the following problems? 1. Little interest or pleasure in doing things: not at all 2. Feeling down, depressed, or hopeless: not at all 3. Trouble falling or staying asleep, or sleeping too much: several days 4. Feeling tired or having little energy: several days 5. Poor appetite or overeating: not at all 6. Feeling bad about yourself - or that you are a failure or have let yourself or your family down: not at all 7. Trouble concentrating on things, such as reading the newspaper or watching television: not at all 8. Moving or speaking so slowly that other people could have noticed. Or the opposite - being so fidgety or restless that you have been moving around a lot more than usual: not at all 9. Thoughts that you would be better off or of hurting yourself in some way: not at all Total score: 2 Depression Screening Interpretation: Negative Depression Screening Done: Yes 22024 - PHQ-9 Billing: Yes Source: Developed by Drs. Iván Brink, Chandni Winn, Evan Lopez and colleagues, with an educational barb from [employer] [facility]. Thrive Questionnaire Date Thrive assessed: 05/15/25 I am a: Patient What is your living situation today?: I have a steady place to live Within the past 12 months, did the food you bought not last and you didn't have the money to get more?: Never true Within the past 12 months, did you worry whether your food would run out before you got money to buy more?: Never true Do you have trouble paying for medicines?: No Do you have trouble getting transportation to medical appointments?: No Do you have trouble paying your heating and electricity bill?: No Do you have trouble taking care of your child, family member or friend?: No Do you have trouble with day-to-day activities such as bathing, preparing meals, shopping, managing finances, etc.?: No Are you currently unemployed and looking for a job?: No Are you interested in more education?: No Please select the resources that you would like help with: None Currently or been in a relationship where the following occur: No concerns reported THRIVE Score: 0 AUDIT C Alcohol Use Questionnaire (AUDIT-C) 1. How often do you have a drink containing alcohol?: Never 3. How often do you have six or more drinks on one occasion?: Never Total Score: 0 Score Reviewed/Action Taken: Yes DIALLO-7 AMB Questionnaire DIALLO-7 Date DIALLO - 7 assessed: 05/15/25 Feeling nervous, anxious, or on edge: 1 = Several days Not being able to stop or control worryin = Not at all Worrying too much about different things: 0 = Not at all Trouble relaxin = Several days Being so restless that it is hard to sit still: 0 = Not at all Becoming easily annoyed or irritable: 0 = Not at all Feeling afraid as if something awful might happen: 0 = Not at all Total DIALLO-7 score (0-4 normal; 5-9 mild; 10-14 moderate; 15-21 severe): 2 Source: Developed by Drs. Iván Brink, Chandni Winn, Evan Lopez and colleagues, with an educational barb from [employer] [facility]. DIALLO-7 Assessment Billing DIALLO-7 Assessment Tool: DIALLO-7 Assessment 70713 Review of Systems Const Details: Denies chills, Denies fatigue, Denies fever(s), Denies headache(s) and Denies weakness HEENT Denies change in vision, Denies dizziness, Denies headache(s), Denies hearing loss, Denies nasal congestion, Denies sinus pain, Denies sinus pressure and Denies sore throat Card Denies chest pain, Denies lightheadedness, Denies dyspnea and Denies other (palpitations) Resp Denies cough, Denies dyspnea and Denies wheezing GI Denies abdominal pain, Denies melena, Denies hematochezia, Denies change in bowel habits, Denies dyspepsia and Denies nausea Denies hematuria and Denies dysuria Musc Denies abnormal gait, Denies myalgias, Denies arthralgias, Denies numbness and Denies tingling Skin/Breast Denies rash, Denies unusual bruising and Denies wounds Neuro Denies abnormal gait, Denies dizziness, Denies headache(s), Denies memory loss, Denies numbness, Denies Sensory deficit (Neuro), Denies tingling and Denies weakness Psych Denies anxiety, Denies depression and Denies memory loss Endo Denies cold intolerance, Denies fatigue, Denies heat intolerance, Denies polydipsia and Denies polyuria Constantino/Lymph Denies easy bleeding and Denies easy bruising Aller/Immun Denies wheezing Physical exam (Primary Care) Vital Signs: Last Vital Signs Temp 97.4 F 05/15/25 08:00 Pulse 62 05/15/25 08:00 Resp 16 05/15/25 08:00 BP 177/90 H 05/15/25 08:00 Pulse Ox 100 05/15/25 08:00 Oxygen Delivery Method Room Air 05/15/25 08:00 BMI result Body Mass Index 29.2 Tobacco/Smoking Status: Tobacco use Status Tobacco use date assessed 05/15/25 05/15/25 08:00 Patient Tobacco Use Status Never used Tobacco 05/15/25 07:52 e-Cigarette/Vaping Use Never Used 05/15/25 07:52 PHQ-9: PHQ-9 Score PHQ-9: Total score 2 05/15/25 08:06 Depression Screening Interpretation: Negative Thrive Assessment: Date of Thrive Assessment Date Thrive assessed 05/15/25 05/15/25 08:06 Currently or been in a relationship where the following occur: No concerns reported Const Other: General: no acute distress, well developed, alert and awake Nutritional Appearance: well nourished Orientation/consciousness: patient oriented x3 HENMT Head: Yes normocephalic and Yes atraumatic Ears: hearing grossly normal bilaterally and TM's normal bilaterally General nose exam: Normal external nose present and Normal nares present Mouth: Normal oral and palatal mucosa present and moist mucous membranes Teeth and gingiva: dentition normal Throat: Yes oropharynx normal Eyes Pupils: Equal, round and reactive pupils present and Pupil accommodation reflex normal EOM: EOMs intact bilaterally Neck Neck: Yes normal visual inspection, Yes no lymphadenopathy and Yes trachea midline Thyroid: Thyroid normal Carotids: no bruits Lymphatic: no lymphadenopathy noted Chest Chest palpation & inspection: normal inspection of the chest Resp Effort & Inspection: normal respiratory effort Auscultation: clear to auscultation bilaterally Cardio Rate: regular rate Rhythm: regular rhythm Heart sounds: S1 normal heart sound present, S2 normal heart sound present, no gallops, no murmurs and no rubs Bruits: no abdominal aortic bruits and no carotid bruits GI Palpation (GI): No Abdominal aortic bruit present, Soft to palpation, nontender, No hepatosplenomegaly present and No Rebound tenderness present Auscultation: normal bowel sounds General: Yes no CVA tenderness Back/Spine/Pelvis Back: no CVA tenderness Cervical Spine: cervical ROM normal and No Cervical spine tenderness Thoracic/Lumbar Spine: thoraco-lumbar ROM normal, No pain with thoraco-lumbar ROM, No thoracic spinal tenderness and No lumbar spinal tenderness Skin General: warm and dry. Normal skin color. Normal skin turgor Lesions: no lesions Rashes: no rashes Trauma: no lacerations or abrasions Wounds: no wounds Nails: normal Neuro General: patient oriented x3, gait normal and CN's II-XI intact bilaterally Cranial nerves: Yes Equal, round and reactive pupils present Cognition (Neuro): normal cognition Gait exam (Neuro): Normal gait present Motor exam (neuro): 5/5 motor strength present throughout Sensory Exam: No Sensory deficit (Neuro) Deep tendon reflexes (DTR's): Right patellar reflex intensity grade: 2+ and Left patellar reflex intensity grade: 2+ Extrem General: Yes normal to inspection, No edema and No calf tenderness Psych Appearance: grossly normal Affect: normal affect Attitude: cooperative Thought process: Normal thought process present Coding Level of Care Code Est Pt Level 3 (35698) Est Pt Prev Care >65y(00575) Diagnoses Normal physical examination, routine Z00.00 Essential hypertension I10 Dyslipidemia E78.5 Nasal congestion R09.81 Colon cancer screening Z12.11 Additional Codes DIALLO-7 Assessment Billing - DIALLO-7 Assessment Tool: DIALLO-7 Assessment 01129 ([id number]) PHQ-9 - 21147 - PHQ-9 Billing: Yes ([id number]) Assessment & Plan Assessment & Plan (1) Normal physical examination, routine: Code(s): Z00.00 - Encounter for general adult medical examination without abnormal findings Category: Medical Plan: No significant functional limitation noted. Healthy diet and routine exercise encouraged. Encouraged to perform urinalysis and urine microalbumin lab work today. Follow-up for transfer of care with a new provider within the practice in 2-3 months. Return sooner with symptoms or concerns. Verbalized understanding and agreed with the plan. (2) Essential hypertension: Code(s): I10 - Essential (primary) hypertension Category: Medical Plan: Resting blood pressure is 134/70, within goal of less than 140/90. Continue current treatment regimen. Low-sodium diet encouraged. Follow-up as planned. Verbalized understanding and agreed with the treatment plan. (3) Dyslipidemia: Code(s): E78.5 - Hyperlipidemia, unspecified Category: Medical Plan: Recent triglycerides and HDL levels are elevated, 198 and 117 respectively, HDL level is slightly low, 37. Advised to limit foods high in saturated fat and avoid foods high in trans fat. Routine exercise encouraged. Fast for 10-12 hours, may drink water, and perform lipid panel blood work a few days before next visit. Follow-up in 2-3 months. Return sooner with symptoms or concerns. Verbalized understanding and agreed with the plan. (4) Nasal congestion: Code(s): R09.81 - Nasal congestion Category: Medical Plan: Reports nasal congestion and yellow discharged for the past 1.5 week. No pain, difficulty breathing, fever, chills, body aches, fatigue, weakness. He recovered from a cold 3 weeks ago. Nasal turbinates pink and moist. Maxillary sinus nontender to palpation. No overt infection. May use saline spray as needed. Adequate hydration encouraged. Follow-up as needed. Verbalized understanding and agreed with the plan. (5) Colon cancer screening: Code(s): Z12.11 - Encounter for screening for malignant neoplasm of colon Category: Medical Plan: Last colonoscopy was over 10 years ago: Normal. Declines colonoscopy. Cologuard ordered. Orders: Orders Lipid Panel 2 Months E78.5 - Hyperlipidemia, unspecified Referrals Cologuard Test Z12.11 - Encounter for screening for malignant neoplasm of colon
--- OUTSIDE RECORDS SUMMARY | 2025-05-15 07:51 | XMS_ITS ---
Author Name [facility] Organization Unknown Care Team Organization Name Specialty Phone Email Start Date End [facility] 05/02/20222023
[2025-05-15 08:00] VITALS: BP 177/90; PULSE 62; RESP 16; TEMP 36.3; O2SAT 100; BMI 29.2
[2025-05-15 08:22] VITALS: BP 134/70
== END 2025-05-15 08:39 | disposition home or self-care (01) ==
LOC: HO.HMCFM 07:49
PROVIDERS: PCP Nurse Practitioner Family; Visit Provider Nurse Practitioner Family
DX: Z00.00 Encounter for general adult medical examination without abnormal findings (principal); I10 Essential (primary) hypertension; E78.5 Hyperlipidemia, unspecified; R09.81 Nasal congestion; Z12.11 Encounter for screening for malignant neoplasm of colon

== ENCOUNTER → 2025-05-15 07:48 | Outpatient (BNVA) | payer OTHER, SELFPAY | PROVIDERS: PCP Nurse Practitioner Family; Visit Provider Nurse Practitioner Family | DX: Z00.00 Encounter for general adult medical examination without abnormal findings (principal); I10 Essential (primary) hypertension; E78.5 Hyperlipidemia, unspecified; R09.81 Nasal congestion | CPT/HCPCS: 96127 ==